=== PATIENT | male | born 1980 | race Caucasian/White ===

== ENCOUNTER 2021-04-02 05:15 | Emergency (ER) | payer OTHER, SELFPAY ==
[2021-04-02 05:16] VITALS: BP 141/90; PULSE 117; RESP 18; TEMP 37.2; O2SAT 98; BMI 25.8
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
--- NOTE | 2021-04-02 05:46 | RAD_ITS ---
STUDY: X-RAY - LEFT ANKLE REASON FOR EXAM: Male, 40 years old. Injury TECHNIQUE: 3 radiographic view(s) of the ankle. COMPARISON: None. FINDINGS: Oblique fracture through the medial malleolus involving the superomedial ankle mortise with mild combination and no significant displacement. There appears to be chronic transverse fracture through the lateral malleolus at the level of the syndesmosis. Soft tissue swelling is more prominent over the lateral malleolus. Normal tibiotalar articulation and ankle mortise. Normal visualized talus and calcaneus. The visualized subtalar, talonavicular, calcaneocuboid and tarsal articulations are normal. RAD/Ankle min 3 Views IMPRESSION: Oblique medial malleolus fracture. Electronically Signed: Collin Hoyt MD at 6:35 EDT Tel , Service support ,
[2021-04-02] MEDS: oxyCODONE 5 MG Tablet PO (06:14)
== END 2021-04-02 06:47 | disposition home or self-care (01) ==
PROVIDERS: Emergency Provider Emergency Medicine
DX: S82.52XA Displaced fracture of medial malleolus of left tibia, initial encounter for closed fracture (principal); W01.0XXA Fall on same level from slipping, tripping and stumbling without subsequent striking against object, initial encounter; Y93.9 Activity, unspecified; Y92.9 Unspecified place or not applicable; Y99.9 Unspecified external cause status; Z87.891 Personal history of nicotine dependence
CPT/HCPCS: 29515; 73610; 99283